=== PATIENT | male | born 1990 | race African-American/Black ===

== ENCOUNTER 2024-01-22 09:53 | Emergency (ER) | payer SELFPAY ==
[2024-01-22] MEDS ORDERED: ONDANSETRON 4 MG/2 ML VIAL ONE (10:59)
[2024-01-22] MEDS: SODIUM CHLORIDE 0.9% 500 ML INFUS.BAG IV ONE ×2 (11:20→13:37)
[2024-01-22] MEDS: ONDANSETRON 4 MG/2 ML VIAL IVPUSH ONE (11:20)
[2024-01-22 11:45] LABS: BASO % 0.4 % (0-2.0); HEMATOCRIT 44.7 % (35.4-49); HEMOGLOBIN 15.2 GM/dL (11.7-16.9); LYMPH % 19.1 % (8-40); MCH 33.2 pg (25.7-33.7); MCHC 34.1 g/dl (32.0-35.9); MEAN CELL VOLUME 97.4 fl (80-96); MEAN PLT VOLUME 8.7 fl (7.5-11.1); MONO % 6.8 % (3.8-10.2); NEUT % 72.7 % (42.8-82.8); PLATELET COUNT 301 10^3/uL (134-434); RBC 4.59 M/mm3 (4.00-5.60); RDW 13.9 % (11.9-15.9); WHITE BLOOD COUNT 6.1 K/mm3 (4.0-10.0)
[2024-01-22 11:51] LABS: PH,URINE 6.5 (5.0-8.0); URINE APPEARANCE CLEAR; URINE BILIRUBIN NEGATIVE (NEGATIVE); URINE COLOR YELLOW; URINE GLUCOSE (UA) NEGATIVE (NEGATIVE); URINE KETONE 2+ (NEGATIVE); URINE LEUK ESTERASE NEGATIVE (NEGATIVE); URINE NITRITE NEGATIVE (NEGATIVE); URINE PROTEIN TRACE (NEGATIVE)
[2024-01-22 12:03] VITALS: BP 126/80; PULSE 89; RESP 18; TEMP 98.2; BMI 23.2
[2024-01-22 12:11] LABS: POTASSIUM 4.7 mmol/L (3.5-5.1)
[2024-01-22 12:16] LABS: ALBUMIN 4.4 g/dl (3.4-5.0); CALCIUM 9.4 mg/dL (8.5-10.1)
[2024-01-22 12:18] LABS: CREATININE 0.9 mg/dL (0.55-1.3)
[2024-01-22 12:19] LABS: BILIRUBIN,TOTAL 1.2 mg/dL (0.2-1); TOT PROT 7.9 g/dl (6.4-8.2)
== END 2024-01-22 15:37 | disposition home or self-care (01) ==
LOC: JER 09:53
PROC: 3E033GC Introduction of Other Therapeutic Substance into Peripheral Vein, Percutaneous Approach (ICD-10-PCS; principal; 2024-01-22)
DX: M62.82 Rhabdomyolysis (principal); R42 Dizziness and giddiness; H53.8 Other visual disturbances; R11.0 Nausea; R51.9 Headache, unspecified; G89.29 Other chronic pain; Z20.822 Contact with and (suspected) exposure to COVID-19
CPT/HCPCS: 0241U-QW; 36415; 80053; 81003; 82550; 82553; 83036; 83690; 84443; 84484; 85025; 93005; 93010; 99284-25

== ENCOUNTER 2024-01-26 09:09 | Emergency (ER) | payer SELFPAY ==
[2024-01-26 09:23] VITALS: RESP 18; BMI 23.2
[2024-01-26 10:35] VITALS: BP 134/84; PULSE 89; TEMP 98.8
[2024-01-26 10:45] LABS: BASO % 0.6 % (0-2.0); EOS % 1.7 % (0-4.5); HEMATOCRIT 42.8 % (35.4-49); HEMOGLOBIN 14.6 GM/dL (11.7-16.9); MCHC 34.1 g/dl (32.0-35.9); MEAN CELL VOLUME 96.8 fl (80-96); MEAN PLT VOLUME 8.4 fl (7.5-11.1); MONO % 7.8 % (3.8-10.2); NEUT % 70.9 % (42.8-82.8); PLATELET COUNT 292 10^3/uL (134-434); RBC 4.43 M/mm3 (4.00-5.60); RDW 13.6 % (11.9-15.9); WHITE BLOOD COUNT 4.7 K/mm3 (4.0-10.0)
[2024-01-26] MEDS: SODIUM CHLORIDE 0.9% 500 ML INFUS.BAG IV ONE (10:46)
[2024-01-26 10:53] LABS: INR 0.96 (0.83-1.09); PROTHROMBIN TIME (PATIENT) 10.9 SEC (9.7-13.0)
[2024-01-26 11:21] LABS: POTASSIUM 4.3 mmol/L (3.5-5.1)
[2024-01-26 11:23] LABS: BLOOD UREA NITROGEN 8.5 mg/dL (7-18); CALCIUM 9.6 mg/dL (8.5-10.1)
[2024-01-26 11:24] LABS: ALBUMIN 4.5 g/dl (3.4-5.0); MAGNESIUM 2.3 mg/dL (1.8-2.4)
[2024-01-26 11:26] LABS: CREATININE 0.9 mg/dL (0.55-1.3); PHOSPHOROUS 2.4 mg/dL (2.5-4.9)
[2024-01-26 11:28] LABS: BILIRUBIN,TOTAL 0.8 mg/dL (0.2-1); TOT PROT 7.6 g/dl (6.4-8.2)
[2024-01-26 12:19] LABS: PH,URINE 7.5 (5.0-8.0); URINE APPEARANCE CLEAR; URINE BILIRUBIN NEGATIVE (NEGATIVE); URINE COLOR YELLOW; URINE GLUCOSE (UA) NEGATIVE (NEGATIVE); URINE KETONE TRACE (NEGATIVE); URINE LEUK ESTERASE NEGATIVE (NEGATIVE); URINE NITRITE NEGATIVE (NEGATIVE); URINE PROTEIN NEGATIVE (NEGATIVE); URINE UROBILINOGEN 0.2 mg/dL (0.2-1.0)
== END 2024-01-26 13:08 | disposition home or self-care (01) ==
LOC: JER 09:09
DX: R53.1 Weakness (principal); R42 Dizziness and giddiness
CPT/HCPCS: 36415; 80053; 81003; 82550; 82553; 83735; 84100; 85025; 85610; 85730; 87086; 99283-25

== ENCOUNTER 2024-02-12 13:21 | Emergency (ER) | payer BC ==
[2024-02-12 15:15] VITALS: BP 142/88; PULSE 92; RESP 18; TEMP 98.4; BMI 23.5
[2024-02-12 15:20] LABS: EPI CELLS 2 /uL (0-25.1); HYALINE CASTS 0 /uL (0-3.1); PH,URINE 6.5 (5.0-8.0); URINE APPEARANCE CLEAR; URINE BACTERIA 1 /uL (0-1359); URINE BILIRUBIN NEGATIVE (NEGATIVE); URINE COLOR YELLOW; URINE GLUCOSE (UA) NEGATIVE (NEGATIVE); URINE KETONE 2+ (NEGATIVE); URINE LEUK ESTERASE NEGATIVE (NEGATIVE); URINE NITRITE NEGATIVE (NEGATIVE); URINE PROTEIN NEGATIVE (NEGATIVE); URINE RBC 15 /uL (0-23.9); URINE UROBILINOGEN 0.2 mg/dL (0.2-1.0); URINE WBC 12 /uL (0-25.8)
[2024-02-12] MEDS: SODIUM CHLORIDE 0.9% 500 ML INFUS.BAG IV ONE ×2 (15:58→17:57)
[2024-02-12 16:10] LABS: BASO % 0.7 % (0-2.0); EOS % 0.7 % (0-4.5); HEMATOCRIT 44.1 % (35.4-49); LYMPH % 20.4 % (8-40); MCH 33.5 pg (25.7-33.7); MCHC 34.1 g/dl (32.0-35.9); MEAN CELL VOLUME 98.2 fl (80-96); MEAN PLT VOLUME 8.8 fl (7.5-11.1); MONO % 6.4 % (3.8-10.2); NEUT % 71.8 % (42.8-82.8); PLATELET COUNT 242 10^3/uL (134-434); RBC 4.49 M/mm3 (4.00-5.60); WHITE BLOOD COUNT 5.8 K/mm3 (4.0-10.0)
[2024-02-12 17:06] LABS: CHLORIDE 107 mmol/L (98-107); SODIUM 135 mmol/L (136-145)
[2024-02-12 17:08] LABS: CALCIUM 9.4 mg/dL (8.5-10.1)
[2024-02-12 17:09] LABS: ALBUMIN 4.5 g/dl (3.4-5.0); ANION GAP 6 mmol/L (4-13); BLOOD UREA NITROGEN 6.8 mg/dL (7-18); CO2 21 mmol/L (21-32); GLUCOSE,RANDOM 86 mg/dL (74-106); POTASSIUM 7.3 mmol/L (3.5-5.1)
[2024-02-12 17:11] LABS: SGOT/AST 60 U/L (15-37); SGPT/ALT 29 U/L (13-61)
[2024-02-12 17:13] LABS: BILIRUBIN,TOTAL 1.4 mg/dL (0.2-1)
[2024-02-12 17:14] LABS: TOT PROT 8.2 g/dl (6.4-8.2)
[2024-02-12 17:15] LABS: ALK PHOS 256 U/L (45-117)
[2024-02-12] MEDS ORDERED: ONDANSETRON 4 MG/2 ML VIAL ONE (17:33)
[2024-02-12] MEDS: ONDANSETRON 4 MG/2 ML VIAL IVPUSH ONE (17:45)
== END 2024-02-12 19:24 | disposition home or self-care (01) ==
LOC: JER 13:21
PROC: 3E033GC Introduction of Other Therapeutic Substance into Peripheral Vein, Percutaneous Approach (ICD-10-PCS; principal; 2024-02-12)
DX: R42 Dizziness and giddiness (principal); R53.1 Weakness; R11.0 Nausea; R00.2 Palpitations; F41.9 Anxiety disorder, unspecified; H53.8 Other visual disturbances
CPT/HCPCS: 36415; 80053; 81003; 82550; 82553; 84132; 85025; 87086; 93005; 93010; 99284-25